=== PATIENT | female | born 1955 | race Caucasian/White ===

== ENCOUNTER 2023-11-24 14:38 | Emergency (ER) | payer BC, MEDICARE ==
[~2023-11-24] VITALS: Ht 157.5 cm; Wt 62.7 kg
[2023-11-24 14:44] VITALS: TEMP 98.4
[2023-11-24] MEDS ORDERED: ketorolac trometh inj. 60 MG/2 ML VIAL IM ONE (16:10)
[2023-11-24] MEDS ORDERED: ketorolac trometh. 30mg/ml inj. IM ONE (16:20)
[2023-11-24] MEDS: CefTRIAXone 1000mg IM Kit (w/lidocaine diluent) IM ONE (16:47)
[2023-11-24] MEDS: ketorolac tromethamine 15mg/ml inj. IM ONE (16:47)
[2023-11-24] MEDS ORDERED: CEPH-585 PO (17:07)
[2023-11-24] MEDS ORDERED: SULF1TAB49 PO (17:07)
[2023-11-24] MEDS ORDERED: IBUP-1985 PO (17:07)
[2023-11-24] MEDS ORDERED: HYDR-3965 PO (17:40)
[2023-11-24 18:08] VITALS: BP 162/75; PULSE 97; RESP 16; O2SAT 98
== END 2023-11-24 18:28 | disposition home or self-care (01) ==
LOC: ER 14:38
DX: L03.116 Cellulitis of left lower limb (principal); Z88.0 Allergy status to penicillin; Z79.2 Long term (current) use of antibiotics; Z79.1 Long term (current) use of non-steroidal anti-inflammatories (NSAID); Z79.899 Other long term (current) drug therapy
CPT/HCPCS: 73564; 96372; 99284; J0696; J1885

== ENCOUNTER 2023-12-17 12:32 | Emergency (ER) | payer MEDICARE, BC ==
[~2023-12-17] VITALS: Ht 162.6 cm; Wt 60.0 kg
[~2023-12-17 12:32] MED LIST: IBUP-1985 PO
[2023-12-17 14:35] LABS: BASOPHILS % (AUTO) 0.5 % (0-1); EOSINOPHILS # (AUTO) 0.3 X10'3 (0-0.9); EOSINOPHILS % (AUTO) 4.3 % (0-6); HEMOGLOBIN 14.6 g/dl (12.0-16.0); LYMPHOCYTES # (AUTO) 1.2 X10'3 (1.1-4.8); LYMPHOCYTES % (AUTO) 20.9 % (21-51); MEAN CORPUSCULAR HEMOGLOBIN 28.3 PG (27.0-31.0); MEAN CORPUSCULAR HGB CONC 33.1 g/dL (33.0-36.5); MEAN CORPUSCULAR VOLUME 85.4 FL (78-98); MEAN PLATELET VOLUME 8.3 FL (7.4-10.4); MONOCYTES # (AUTO) 0.6 X10'3 (0-0.9); MONOCYTES % (AUTO) 10.8 % (2-12); NEUTROPHILS # (AUTO) 3.7 X10'3 (1.8-7.7); NEUTROPHILS % (AUTO) 63.5 % (42-75); PLATELET COUNT 249 X10'3 (140-440); RED BLOOD COUNT 5.15 X10'6 (4.20-5.60); RED CELL DISTRIBUTION WIDTH 13.6 % (11.5-14.5); WHITE BLOOD COUNT 5.9 X10'3 (4.5-11.0)
[2023-12-17 14:59] LABS: ALBUMIN 3.8 G/DL (3.4-5.0); ANION GAP 7 (8-16); BLOOD UREA NITROGEN 29 MG/DL (7-18); BUN/CREATININE RATIO 31.9 (10.0-20.0); CALCIUM 9.1 MG/DL (8.5-10.1); CHLORIDE 104 MMOL/L (99-107); CREATININE 0.91 MG/DL (0.40-0.90); GLUCOSE 86 MG/DL (70-104); MAGNESIUM 2.3 MG/DL (1.5-2.4); POTASSIUM 4.1 MMOL/L (3.5-5.1); SODIUM 140 MMOL/L (135-145); TOTAL CARBON DIOXIDE 29.2 MMOL/L (24-32); eCRCL 52 ML/MIN; eGFR 62 ML/MIN
[2023-12-17 15:02] LABS: URIC ACID 5.1 MG/DL (2.5-6.2)
[2023-12-17] MEDS ORDERED: SULF1TAB49 PO (15:50)
[2023-12-17] MEDS ORDERED: CEPH-585 PO (15:50)
[2023-12-17] MEDS ORDERED: CefTRIAXone 1000mg IM Kit (w/lidocaine diluent) IM ONE (15:55)
[2023-12-17 16:16] VITALS: BP 176/111; PULSE 65; RESP 16; TEMP 98.8; O2SAT 98
== END 2023-12-17 16:19 | disposition home or self-care (01) ==
LOC: ER 12:32
DX: L03.116 Cellulitis of left lower limb (principal); Z88.0 Allergy status to penicillin
CPT/HCPCS: 36415; 73700; 80048; 83605; 83735; 84145; 84550; 85025; 87040; 99284

== ENCOUNTER 2024-01-07 07:42 | Emergency (ER) | payer MEDICARE, BC ==
[~2024-01-07] VITALS: Ht 157.5 cm; Wt 58.2 kg
[2024-01-07 07:45] VITALS: TEMP 97.5
[2024-01-07] MEDS ORDERED: DOXY-224 PO (08:29)
[2024-01-07] MEDS: naproxen 500mg tablet PO ONE (09:07)
[2024-01-07] MEDS: DOXYCYCLINE 100MG CAPSULE PO STA (09:07)
[2024-01-07 09:30] VITALS: BP 128/64; PULSE 68; RESP 16; O2SAT 98
== END 2024-01-07 09:46 | disposition home or self-care (01) ==
LOC: ER 07:42
DX: L03.116 Cellulitis of left lower limb (principal); Z88.0 Allergy status to penicillin; Z79.899 Other long term (current) drug therapy; Z79.1 Long term (current) use of non-steroidal anti-inflammatories (NSAID); Z90.710 Acquired absence of both cervix and uterus
CPT/HCPCS: 99283

== ENCOUNTER 2024-05-30 08:25 | Outpatient (CLI) | payer MEDICARE, BC | END 2024-05-30 23:59 | disposition home or self-care (01) | LOC: US 08:25 | PROVIDERS: ATTEND Physician Assistant | DX: I10 Essential (primary) hypertension (principal); R94.4 Abnormal results of kidney function studies | CPT/HCPCS: 76770 ==